=== PATIENT | male | born 1965 | race African-American/Black ===

== ENCOUNTER 2022-05-03 19:17 | Emergency (ER) | payer OTHER ==
[~2022-05-03] VITALS: Ht 180.3 cm; Wt 90.7 kg
--- NOTE | 2022-05-03 19:38 | NUR ---
pt bib ra for left hip pain, found [place] would not answer questions about medical history. pt allowed a blood sugar check it was 253,
[2022-05-03] MEDS ORDERED: IV NORMAL SALINE 1000 ML BAG IV ONE (20:00)
[2022-05-03] MEDS ORDERED: KETOROLAC TROMETHAMINE 60 MG INJ IM ONE ×2 (20:15→21:07)
[2022-05-03 20:42] LABS: MEAN CORPUSCULAR HEMOGLOBIN 26.1 uug (23.8-33.4); MEAN CORPUSCULAR VOLUME 80.7 fL (73.0-96.2); PLATELET COUNT (AUTO) 267 K/uL (152-348)
[2022-05-03 21:01] LABS: ALANINE AMINOTRANSFERASE 25 U/L (16-63); ALKALINE PHOSPHATASE 74 U/L (50-136); ASPARTATE AMINOTRANSFERASE 14 U/L (15-37); BILIRUBIN,DIRECT 0.2 mg/dL (0.0-0.2); BILIRUBIN,TOTAL 0.5 mg/dL (0.2-1.0); CARBON DIOXIDE 26 mmol/L (21-32); CHLORIDE 104 mmol/L (98-107); CREATININE 1.1 mg/dL (0.6-1.3); GLUCOSE 223 mg/dL (74-106); POTASSIUM 3.5 mmol/L (3.5-5.1); TOTAL PROTEIN, SERUM 6.9 g/dL (6.4-8.2); UREA NITROGEN, BLOOD 10 mg/dL (7-18)
[2022-05-03 21:06] LABS: THYROID STIMULATING HORMONE 1.161 mIU/mL (0.358-3.740)
[2022-05-03 21:21] LABS: ETHANOL < 3 MG/DL (0-0)
--- NOTE | 2022-05-03 22:37 | NUR ---
pt more cooperative, denies pain. Dr. Lamb made aware.
[2022-05-03 23:28] LABS: *BILIRUBIN,URIN NEGATIVE (NEGATIVE); *BLOOD, URINE NEGATIVE (NEGATIVE); *CLARITY,URINE CLEAR (CLEAR); *COLOR,URINE YELLOW (YELLOW); *KETONES,URINE NEGATIVE (NEGATIVE); LEUKOCYTE ESTERASE ,URINE NEGATIVE (NEGATIVE); NITRITE, URINE NEGATIVE (NEGATIVE); PH,URINE 6.5 (5.0-8.0); UGLUCOSE TRACE (NEGATIVE)
[2022-05-03 23:46] LABS: *AMPHETAMINE, URINE POSITIVE (NEGATIVE); *CANNABINOID, URINE NEGATIVE (NEGATIVE); *COCCAINE, URINE NEGATIVE (NEGATIVE); *OPIATE, URINE NEGATIVE (NEGATIVE); *PHENCYCLIDINE SCREEN,URINE NEGATIVE (NEGATIVE)
--- NOTE | 2022-05-04 03:19 | NUR ---
pt is cooperative, pt standing at side of gourney urinating. offered scrub pants pt agreed and placed his pants on.
--- NOTE | 2022-05-04 06:48 | NUR ---
pt is d/c by day shift doctor Awa. Iv was removed. pt is yelling, uncooperative, security is called to escort the pt out of the emergency room.
[2022-05-04 07:02] VITALS: BP 141/80
== END 2022-05-04 07:03 | disposition home or self-care (01) ==
LOC: ER 19:18
DX: M16.12 Unilateral primary osteoarthritis, left hip (principal); F15.10 Other stimulant abuse, uncomplicated; Z59.00 Homelessness unspecified; E11.9 Type 2 diabetes mellitus without complications; R94.31 Abnormal electrocardiogram [ECG] [EKG]; R79.89 Other specified abnormal findings of blood chemistry; E87.2 Acidosis
CPT/HCPCS: 80076; 80048; 81003; 82009; 82140; 82550; 84443; 85025; 87040 ×2; 87086; 84484; 36415; 93005; 71045; 72170; 73502; 93971; 99285; 96374; 83605 ×2; 80320; 80307; J1885; J7040; A4663; G0480